=== PATIENT | male | born 1975 | race Caucasian/White ===

== ENCOUNTER 2018-04-01 09:22 | Emergency (ER) | payer MEDICAID ==
--- NOTE | 2018-04-01 09:40 | EDPHY ---
H & P Time Seen by Provider: 04/01/18 09:37 HPI/ROS: HPI High blood pressure. 42-year-old male by private vehicle. This patient was sent to the emergency department from the [facility]. He just had a routine physical. His blood pressure readings today during that physical were 155/115 and 146/105 and then a repeat after 5 min of rest was 144/105. Patient denies any associated symptoms. No chest pain. No shortness of breath. No headache. No changes in vision. He has had an upper respiratory infection with a intermittent nonproductive cough and some nasal congestion. He has not been taking medication for this. Blood pressure in triage here is 124/94. ROS: Constitutional: No fever, no chills. No weakness. Eyes: No discharge. No changes in vision. ENT: No sore throat. As above. Respiratory: As above. No shortness of breath. Cardiac: No chest pain, no palpitations. Gastrointestinal: No abdominal pain, no vomiting, no diarrhea. Genitourinary: No hematuria. No dysuria or increased frequency with urination. Musculoskeletal: No back pain. No neck pain. No myalgias or arthralgias. Skin: No rashes. Neurological: No headache. No focal weakness or altered sensation. Past medical history: Hernia repair. History of asthma diagnosed in [place]. He reports that since he has been in [place] he has not had issues with his asthma. He does not currently take chronic medications for his asthma. Otherwise no other significant past medical history. Social history: Here by himself. Nonsmoker. No alcohol. Physical Exam: General Appearance: Alert, no distress. This patient is responding to questions appropriately and in full sentences. This patient appears well- hydrated and well-nourished. Eyes: Pupils equal and round no pallor or injection. No lid edema, erythema or injection. ENT, Mouth: Mucous membranes are moist. The pharyngeal tissues are unremarkable. No edema or swelling. No asymmetry suggestive of abscess. No erythema or exudates. Respiratory: There are no retractions, diffuse wheezing with diminished air movement bilaterally. No tachypnea. Cardiovascular: Regular rate and rhythm. No murmur. Gastrointestinal: Abdomen is soft and nontender, no masses, bowel sounds normal. No focal tenderness at McBurney's point. No Short sign. Neurological: Motor sensory function is grossly intact. Cranial nerves are normal. Gait is normal. Skin: Warm and dry, no rashes. Musculoskeletal: Neck is supple and nontender. Extremities are symmetrical. All joints range without pain or impingement. Psychiatric: No agitation. No depression. Database: EKG: Imaging: Chest x-ray PA and lateral; the cardiac mediastinal silhouette is unremarkable. No evidence of infiltrate or pneumothorax. No acute cardiopulmonary disease process noted. Interpreted by me. Procedures: Emergency department course: Vital signs reviewed here and are normal. Blood pressure is currently 124/94. Patient likely has a bronchitis with an associated exacerbation of his asthma. He will be given albuterol/Atrovent nebulizers and 60 mg of prednisone. A chest x-ray will be obtained. I explained that the albuterol will likely make his blood pressure increase. 10:20 a.m., patient re-evaluated. Resting comfortably at this time. Denies any complaints currently. States that he feels like he can breathe better. Repeat pulmonary exam is clear on auscultation with good air movement bilaterally. No tachypnea. I will refer him to a primary care physician for medical clearance for his physical testing and clearance for employment through [facility] [employer]. He is in agreement with this plan. I will also prescribe him an albuterol inhaler and a short course of steroids for his asthma exacerbation. He feels comfortable with this plan. Follow-up and return to emergency department precautions were discussed in detail with him. All of his questions were answered. He was discharged in good condition. Differential Diagnosis: The differential diagnosis on this patient includes but is not limited to bronchitis, asthma exacerbation, elevated blood pressure at clinic. Hypertensive emergency, bacterial pneumonia unlikely. This represents a partial list of diagnoses considered. These considerations are based on history , physical exam, past history, reassessment and diagnostic testing. Smoking Status: Former smoker Constitutional: Initial Vital Signs Heart Rate 70 04/01/18 09:29 Respiratory Rate 20 04/01/18 09:29 Blood Pressure 124/94 H 04/01/18 09:29 O2 Sat (%) 93 04/01/18 09:29 O2 Delivery Mode Room Air Allergies/Adverse Reactions: codeine [Codeine] Allergy (Verified 04/01/18 09:34) Other-Enter Comments hydrocodone bitartrate [From Vicodin] Allergy (Verified 04/01/18 09:34) Other-Enter Comments Home Medications: Medication Instructions Recorded Albuterol [Proventil Inhaler HFA 2 puffs IH Q2-4PRN PRN #1 mdi 04/01/18 (*)] predniSONE [prednisone 20mg (RX)] 60 mg PO DAILY #9 tab 04/01/18 Medical Decision Making - Data Points Medications Given: Discontinued Medications Albuterol/Ipratropium (Duoneb) 6 ml IH EDNOW ONE Stop: 04/01/18 09:44 Last Admin: 04/01/18 09:49 Dose: 6 ml Prednisone (Prednisone) 60 mg PO EDNOW ONE Stop: 04/01/18 09:44 Last Admin: 04/01/18 09:49 Dose: 60 mg Departure - Departure Disposition: Home, Routine, Self-Care Clinical Impression: Elevated blood pressure reading, Bronchitis, Asthma exacerbation Condition: Good Instructions: Asthma (ED), Acute Bronchitis (ED) Additional Instructions: Your blood pressure in the emergency department today was 124/94. Read and follow provided instructions. Follow-up with your primary care physician in 1-2 days for re-evaluation. I have given you several referrals for follow-up. It is up to your primary care physician to clear you for physical capacity testing for [facility] [employer]. Not an Emergency Physician. Take medication as prescribed for bronchitis and asthma. Return to the emergency department for worsening symptoms, chest pain, shortness of breath, fever or other serious concerns. Referrals: Dylon Martinez DO [Doctor of Osteopathy] - As per Instructions Hubert Tyson MD [Medical Doctor] - As per Instructions Johny Sutton DO [Doctor of Osteopathy] - As per Instructions Prescriptions: Albuterol [Proventil Inhaler HFA (*)] 2 puffs IH Q2-4PRN PRN #1 mdi PRN Reason: Sob/Dyspnea predniSONE [prednisone 20mg (RX)] 60 mg PO DAILY #9 tab
[2018-04-01] MEDS ORDERED: IPRATROPIUM/ALBUTEROL 3 ML DEYVIAL IH ONE (09:43)
[2018-04-01] MEDS ORDERED: predniSONE 20 MG TAB PO ONE (09:43)
[2018-04-01 10:38] VITALS: BP 142/77
== END 2018-04-01 10:37 | disposition home or self-care (01) ==
LOC: CED 09:22
DX: R03.0 Elevated blood-pressure reading, without diagnosis of hypertension (principal); J45.901 Unspecified asthma with (acute) exacerbation; Z87.891 Personal history of nicotine dependence
CPT/HCPCS: 71046-PO; J7512